=== PATIENT | male | born 1945 | race Caucasian/White ===

== ENCOUNTER 2019-07-31 17:29 | Observation (INO) ==
[2019-07-31 18:03] LABS: Basophils % 0.5 %; Eosinophils # 0.1 K/mcL (0.0-0.6); Eosinophils % 1.7 %; Hematocrit 44.2 % (37.5-50.1); Hemoglobin 14.6 g/dL (12.9-16.9); Immature Granulocytes % 0.5 % (0-4); Lymphocytes % 23.7 %; Mean Corpuscular Hemoglobin 31.5 pg (28.0-33.3); Mean Corpuscular Volume 95.3 fL (83.0-100.0); Mean Platelet Volume 8.4 fL (9.4-12.4); Monocytes # 0.4 K/mcL (0.0-1.3); Monocytes % 5.2 %; Neutrophils # 5.7 K/mcL (1.6-8.9); Platelet Count 334 K/mcL (140-400); Red Blood Count 4.64 M/mcL (4.19-5.50); Segmented Neutrophils % 68.4 %; White Blood Count 8.3 K/mcL (4.3-11.1)
[2019-07-31 18:07] LABS: INR 1.1; Prothrombin Time 12.7 Seconds (9.4-12.1)
[2019-07-31 18:13] LABS: Alanine Aminotransferase 19 Units/L (7-52); Albumin 4.1 g/dL (3.5-5.7); Albumin/Globulin Ratio 1.5 (1.1-2.2); Alkaline Phosphatase 76 Units/L (34-104); Aspartate Amino Transferase 14 Units/L (13-39); BUN/Creatinine Ratio 13 (6-26); Bilirubin,Direct 0.1 mg/dL (0.0-0.2); Bilirubin,Indirect 0.5 mg/dL (0.0-1.0); Bilirubin,Total 0.6 mg/dL (0.3-1.0); Blood Urea Nitrogen 12 mg/dL (8-23); Calcium 9.3 mg/dL (8.6-10.3); Carbon Dioxide 30 mEq/L (23-29); Chloride 101 mEq/L (98-107); Globulin 2.8 g/dL (2.4-3.5); Glucose 117 mg/dL (70-105); Osmolality,Calculated 287 (280-300); Potassium 4.1 mEq/L (3.5-5.1); Sodium 138 mEq/L (136-145); Total Protein 6.9 g/dL (6.4-8.9); eGFR For African Americans > 60 (> 60); eGFR For Non-African Americans > 60 (> 60)
[2019-07-31 18:20] LABS: Troponin I < 0.03 ng/mL (< 0.04)
[2019-07-31] MEDS ORDERED: Ipratropium/Albuterol Neb 3 ML ONE (19:26)
[2019-07-31] MEDS ORDERED: Naloxone 0.4 MG/ML INJ IVP PRN (21:30)
[2019-07-31] MEDS ORDERED: Acetaminophen 325 MG TABLET PO PRN (21:30)
[2019-07-31] MEDS ORDERED: cefTRIAXone 1,000 MG in 0.9 % Sodium Chloride Mini Bag 100 ML IVPB SCH (21:30)
[2019-07-31] MEDS ORDERED: traMADol 50 MG TABLET PO PRN (21:30)
[2019-07-31] MEDS: MethylPREDNISolone 40 MG/ML VIAL IVP SCH (23:29)
[2019-07-31] MEDS: Ipratropium/Albuterol Neb 3 ML IH SCH (23:31)
[2019-07-31] MEDS: Budesonide/Formoterol 160/4.5 1 PUFF INH IH SCH (23:31)
[2019-08-01] MEDS ORDERED: Ondansetron ODT 4 MG TAB.RAPDIS SL SCH
[2019-08-01] MEDS: MethylPREDNISolone 40 MG/ML VIAL IVP SCH (05:24)
[2019-08-01] MEDS: Ipratropium/Albuterol Neb 3 ML IH SCH ×2 (05:25→08:06)
[2019-08-01] MEDS ORDERED: *HR* Enoxaparin 40 MG/0.4 ML SYRINGE SQ SCH (07:00)
[2019-08-01] MEDS: Budesonide/Formoterol 160/4.5 1 PUFF INH IH SCH (08:07)
[2019-08-01] MEDS ORDERED: Aspirin Enteric Coated 81 MG Tablet PO SCH (09:00)
[2019-08-01] MEDS ORDERED: SAW PALMETTO FRUIT 450 MG PO SCH (09:00)
[2019-08-01 11:00] VITALS: BP 133/80
== END 2019-08-01 14:55 | disposition home or self-care (01) ==
LOC: INPGRE 17:29 → EMEROOGRE 17:29 → INPGRE 20:50
PROVIDERS: ADMIT Family Medicine; ATTEND Family Medicine

== ENCOUNTER 2020-06-20 00:35 | Observation (INO) ==
[2020-06-20] MEDS ORDERED: levoFLOXacin 750 MG/150 ML 750 MG/150 ML BAG IVPB ONE (00:36)
[2020-06-20] MEDS ORDERED: Ipratropium 1 PUFF INHALER IH ONE (00:39)
[2020-06-20 01:20] LABS: Basophils # 0.1 K/mcL (0.0-0.2); Basophils % 0.5 %; Eosinophils # 0.3 K/mcL (0.0-0.6); Hematocrit 43.7 % (37.5-50.1); Hemoglobin 14.3 g/dL (12.9-16.9); Immature Granulocytes % 0.4 % (0-4); Lymphocytes % 21.7 %; Mean Corpuscular HGB Conc 32.7 g/dL (31.6-35.5); Mean Corpuscular Hemoglobin 30.8 pg (28.0-33.3); Mean Corpuscular Volume 94.2 fL (83.0-100.0); Mean Platelet Volume 8.4 fL (9.4-12.4); Monocytes # 0.4 K/mcL (0.0-1.3); Monocytes % 4.7 %; Neutrophils # 6.3 K/mcL (1.6-8.9); Platelet Count 338 K/mcL (140-400); Red Blood Count 4.64 M/mcL (4.19-5.50); Red Cell Distribution Width 12.6 % (11.5-14.5); Segmented Neutrophils % 69.7 %; White Blood Count 9.1 K/mcL (4.3-11.1)
[2020-06-20 01:31] LABS: VBG HCO3 30 mEq/L (21-27); VBG PCO2 59 mmHg (41-51); VBG PH 7.32 pH Units (7.32-7.42); VBG PO2 28 mmHg (25-50)
[2020-06-20 01:53] LABS: Troponin I < 0.03 ng/mL (< 0.04)
[2020-06-20 01:57] LABS: INR 1.1
[2020-06-20 02:06] LABS: Alanine Aminotransferase 25 Units/L (7-52); Albumin 4.2 g/dL (3.5-5.7); Albumin/Globulin Ratio 1.6 (1.1-2.2); Alkaline Phosphatase 70 Units/L (34-104); Aspartate Amino Transferase 16 Units/L (13-39); BUN/Creatinine Ratio 12 (6-26); Bilirubin,Direct 0.1 mg/dL (0.0-0.2); Bilirubin,Indirect 0.4 mg/dL (0.0-1.0); Bilirubin,Total 0.5 mg/dL (0.3-1.0); Blood Urea Nitrogen 9 mg/dL (8-23); Calcium 9.1 mg/dL (8.6-10.3); Carbon Dioxide 28 mEq/L (23-29); Chloride 101 mEq/L (98-107); Globulin 2.7 g/dL (2.4-3.5); Glucose 122 mg/dL (70-105); Osmolality,Calculated 284 (280-300); Potassium 3.8 mEq/L (3.5-5.1); Sodium 137 mEq/L (136-145); Total Protein 6.9 g/dL (6.4-8.9); eGFR For African Americans > 60 (> 60); eGFR For Non-African Americans > 60 (> 60)
[2020-06-20 03:34] LABS: Adenovirus Not Detected (Not Detect); Bordetella Pertussis Not Detected (Not Detect); Chlamydophila pneumoniae Not Detected (Not Detect); Coronavirus 229E Not Detected (Not Detect); Coronavirus HKU1 Not Detected (Not Detect); Coronavirus NL63 Not Detected (Not Detect); Coronavirus OC43 Not Detected (Not Detect); Human Metapneumovirus Not Detected (Not Detect); Human Rhinovirus/Enterovirus DETECTED (Not Detect); Influenza A Subtype 2009 H1 Not Detected (Not Detect); Influenza B Not Detected (Not Detect); Mycoplasma pneumoniae Not Detected (Not Detect); Parainfluenza Virus 1 Not Detected (Not Detect); Parainfluenza Virus 2 Not Detected (Not Detect); Parainfluenza Virus 3 Not Detected (Not Detect); Parainfluenza Virus 4 Not Detected (Not Detect); Respiratory Syncytial Virus Not Detected (Not Detect); SARS-CoV-2 Not Detected (Not Detect)
[2020-06-20] MEDS ORDERED: OXYGEN SCH (04:39)
[2020-06-20] MEDS ORDERED: Naloxone 0.4 MG/ML INJ IVP PRN (04:39)
[2020-06-20] MEDS: Ipratropium/Albuterol Neb 3 ML IH SCH ×5 (06:12→22:35)
[2020-06-20] MEDS: Budesonide/Formoterol 160/4.5 1 PUFF INH IH SCH ×2 (06:21→22:35)
[2020-06-20] MEDS: *HR* Enoxaparin 40 MG/0.4 ML SYRINGE SQ SCH (06:40)
[2020-06-20] MEDS: methylPREDNISolone 125 MG/2 ML VIAL IVP SCH ×3 (07:31→23:26)
[2020-06-20] MEDS: SAW PALMETTO PO SCH (07:31)
[2020-06-20] MEDS ORDERED: Ipratropium/Albuterol Neb 3 ML IH PRN (19:52)
[2020-06-20] MEDS ORDERED: levoFLOXacin 500 MG/100 ML 500 MG/100 ML BAG IVPB SCH (22:00)
[2020-06-21] MEDS: *HR* Enoxaparin 40 MG/0.4 ML SYRINGE SQ SCH (05:06)
[2020-06-21] MEDS: Ipratropium/Albuterol Neb 3 ML IH SCH ×2 (05:06→09:20)
[2020-06-21] MEDS ORDERED: methylPREDNISolone 125 MG/2 ML VIAL IVP SCH (06:00)
[2020-06-21 07:42] VITALS: BP 113/69
[2020-06-21] MEDS: SAW PALMETTO PO SCH (07:52)
[2020-06-21] MEDS: Budesonide/Formoterol 160/4.5 1 PUFF INH IH SCH (09:19)
[2020-06-21] MEDS ORDERED: FLU Vac QV 20-21 (6Month+)/PF 0.5 ML SYRINGE IM ONE (10:12)
== END 2020-06-21 11:00 | disposition home or self-care (01) ==
LOC: EMEROOGRE 00:35 → INTOOBSV 04:17 → INPGRE 04:17
PROVIDERS: ADMIT Family Medicine; ATTEND Family Medicine